=== PATIENT | female | born 1950 | race Two or more races ===

== ENCOUNTER 2018-02-11 14:05 | Emergency (ER) | payer MEDICARE, MEDICAID ==
[~2018-02-11] VITALS: Ht 162.6 cm; Wt 78.0 kg
[2018-02-11 14:05] VITALS: BP 103/62
[~2018-02-11 14:05] MED LIST: ASPI-1169 PO; ATOR40TA PO; CLON0.1T PO; LISI30TA4 PO; METO50TA7 PO; ZOLP5TAB8 PO
== END 2018-02-11 15:17 | disposition home or self-care (01) ==
LOC: ER 14:06
DX: H20.9 Unspecified iridocyclitis (principal); I10 Essential (primary) hypertension; E78.00 Pure hypercholesterolemia, unspecified; Z95.0 Presence of cardiac pacemaker; Z79.82 Long term (current) use of aspirin; Z79.899 Other long term (current) drug therapy
CPT/HCPCS: 99282; A4606; Z7610

== ENCOUNTER 2022-05-01 11:31 | Emergency (ER) | payer MEDICARE, OTHER ==
[~2022-05-01] VITALS: Ht 160 cm; Wt 83.9 kg
--- NOTE | 2022-05-01 11:43 | NUR ---
TO ER BED 18, C/O LEFT ARM PAIN SINCE YESTERDAY, NO TRAUMA, AAOX3, BREATHING EVEN AND NON LABORED, CONNECTED TO MONITOR, AWAITING MD ORDERS
[2022-05-01 12:29] LABS: BASOPHILS % (AUTO) 0.5 % (0.0-2.0); EOSINOPHILS % (AUTO) 1.7 % (0.0-6.0); HEMATOCRIT 40 % (33-45); HEMOGLOBIN 13.2 g/dL (11.5-14.8); LYMPHOCYTES # (AUTO) 2.2 K/uL (0.8-4.8); LYMPHOCYTES % (AUTO) 32.9 % (20.0-44.0); MEAN CORPUSCULAR HGB CONC 33 g/dl (31.0-36.0); MEAN CORPUSCULAR VOLUME 95 fL (82-100); MONOCYTES # (AUTO) 0.6 K/uL (0.1-1.30); MONOCYTES % (AUTO) 8.1 % (2.0-12.0); NEUTROPHILS # (AUTO) 3.9 K/uL (1.8-8.9); NEUTROPHILS % (AUTO) 56.8 % (43.0-81.0); PLATELET COUNT (AUTO) 295 K/uL (150-450); WHITE BLOOD COUNT (AUTO) 6.8 K/uL (4.3-11.0)
[2022-05-01 12:40] LABS: CALCIUM, SERUM 8.8 mg/dL (8.5-10.1); CARBON DIOXIDE 27 mmol/L (21-32); CHLORIDE 110 mmol/L (98-107); CREATININE 0.9 mg/dL (0.6-1.3); GLUCOSE 105 mg/dL (74-106); POTASSIUM 4.3 mmol/L (3.5-5.1); SODIUM SERUM 143 mmol/L (136-145); UREA NITROGEN, BLOOD 17 mg/dL (7-18)
[2022-05-01] MEDS ORDERED: HYDROCODONE/APAP 5/325MG TABLET ONE (13:34)
[2022-05-01] MEDS ORDERED: IBUPROFEN 600 MG TABLET ONE (13:34)
[2022-05-01] MEDS: IBUPROFEN 600 MG TABLET PO ONE (13:35)
[2022-05-01] MEDS: HYDROCODONE/APAP 5/325MG TABLET PO ONE (13:36)
[2022-05-01] MEDS ORDERED: TRAM50TA2 PO (14:25)
[2022-05-01] MEDS ORDERED: IBUP-1955 PO (14:25)
--- NOTE | 2022-05-01 14:51 | NUR ---
Patient discharged to home in stable condition. Written and verbal after care instructions given. Patient verbalizes understanding of instruction.
[2022-05-01 14:54] VITALS: BP 116/62
== END 2022-05-01 14:54 | disposition home or self-care (01) ==
LOC: ER 11:42
DX: M25.512 Pain in left shoulder (principal); I10 Essential (primary) hypertension; E78.00 Pure hypercholesterolemia, unspecified; Z79.899 Other long term (current) drug therapy
CPT/HCPCS: 36415; 71045-TC; 73030-TC; 80048-TC; 84484-TC; 85025-TC